=== PATIENT | male | born 1950 | race Caucasian/White ===

== ENCOUNTER → 2018-03-27 | Outpatient (CLI) | payer MEDICARE, OTHER | LOC: M.RAD 09:30 | DX: Z03.89 Encounter for observation for other suspected diseases and conditions ruled out (principal); R92.8 Other abnormal and inconclusive findings on diagnostic imaging of breast; Z15.09 Genetic susceptibility to other malignant neoplasm; Z15.01 Genetic susceptibility to malignant neoplasm of breast ==

== ENCOUNTER → 2020-02-01 | Outpatient (CLI) | payer MEDICARE, OTHER | LOC: M.RAD 09:37 | DX: Z15.01 Genetic susceptibility to malignant neoplasm of breast (principal); R92.8 Other abnormal and inconclusive findings on diagnostic imaging of breast; Z84.81 Family history of carrier of genetic disease ==